=== PATIENT | male | born 1965 | race Two or more races ===

== ENCOUNTER 2022-10-20 09:15 | Inpatient (IN) | payer OTHER ==
[~2022-10-20] VITALS: Ht 167.6 cm; Wt 76.2 kg
[2022-10-28] MEDS ORDERED: INTESTINEX680 M1 PO (11:38)
[2022-10-28] MEDS ORDERED: PERCOCET 5-3251 EACH PO (11:38)
[2022-10-28] MEDS ORDERED: LEVSIN/SL0.125 MG SL (11:38)
[2022-10-28] MEDS ORDERED: GAS RELIEF125 MG PO (11:38)
== END 2022-10-28 13:53 | disposition home or self-care (01) | DRG 331 ==
LOC: O/R 10-25 08:22 → EDSTATUS 10-25 09:15 → SURH 10-25 09:15
PROVIDERS: ADMIT Surgery; ATTEND Surgery
PROC: 07BB4ZZ Excision of Mesenteric Lymphatic, Percutaneous Endoscopic Approach (ICD-10-PCS; 2022-10-25)
PROC: 0WQF4ZZ Repair Abdominal Wall, Percutaneous Endoscopic Approach (ICD-10-PCS; 2022-10-25)
PROC: 0DTF4ZZ Resection of Right Large Intestine, Percutaneous Endoscopic Approach (ICD-10-PCS; principal; 2022-10-25 12:15)
DX: C18.0 Malignant neoplasm of cecum (principal); K42.9 Umbilical hernia without obstruction or gangrene; R59.0 Localized enlarged lymph nodes; Z20.822 Contact with and (suspected) exposure to COVID-19